=== PATIENT | male | born 1960 | race Caucasian/White ===

== ENCOUNTER 2017-06-17 17:34 | Emergency (ER) | payer OTHER ==
[2017-06-17 17:48] VITALS: BP 142/82; PULSE 78; TEMP 98.5; BMI 24.9
--- NOTE | 2017-06-17 18:21 | PDOC ---
History of Present Illness - General History Source: Patient Exam Limitations: No Limitations - History of Present Illness Initial Comments: 06/17/17 18:43 The patient is a 57 year old male with no significant past medical history, who presents to the ED with left hand redness/pain/ and swelling that began last night. Patient states he felt a bug bite him and redness and swelling began one hour after. He comes in to the ED because redness is now streaking up to the elbow. Patient denies fever, chills, nausea, vomiting, diarrhea. Denies prior history of skin infections. Denies prior injury to the left hand. PCP: Dr. Paul <Johnny Leon - Last Filed: 06/17/17 18:43> <Fabienne Craven - Last Filed: 06/19/17 11:45> - General Chief Complaint: Redness To Affected Area Stated Complaint: LEFT HAND REDNESS, SWELLING Time Seen by Provider: 06/17/17 18:21 Past History <Johnny Leon - Last Filed: 06/17/17 18:43> - Psycho/Social/Smoking Cessation Hx Suicidal Ideation: No Smoking History: Never smoked Have you smoked in the past 12 months: No Information on smoking cessation initiated: No Hx Alcohol Use: (occasional) Drug/Substance Use Hx: No <Fabienne Craven - Last Filed: 06/19/17 11:45> - Past Medical History Allergies/Adverse Reactions: Allergies Allergy/AdvReac Type Severity Reaction Status Date / Time No Known Allergies Allergy Verified 06/17/17 17:40 Home Medications: Ambulatory Orders Clindamycin HCl [Cleocin HCl] 300 mg PO QID #28 capsule 06/17/17 Review of Systems - Review of Systems Able to Perform ROS?: Yes Comments:: 06/17/17 18:43 GENERAL/CONSTITUTIONAL: No fever or chills. No weakness. HEAD, EYES, EARS, NOSE AND THROAT: No change in vision. No ear pain or discharge. No sore throat. CARDIOVASCULAR: No chest pain or shortness of breath. RESPIRATORY: No cough, wheezing, or hemoptysis. GASTROINTESTINAL: No nausea, vomiting, diarrhea or constipation. GENITOURINARY: No dysuria, frequency, or change in urination. MUSCULOSKELETAL: Pain to the left hand extending to the elbow. SKIN: Redness and swelling to the left hand extending to the elbow. NEUROLOGIC: No headache, vertigo, loss of consciousness, or change in strength/ sensation. ENDOCRINE: No increased thirst. No abnormal weight change. HEMATOLOGIC/LYMPHATIC: No anemia, easy bleeding, or history of blood clots. ALLERGIC/IMMUNOLOGIC: No hives or skin allergy. <Johnny Leon - Last Filed: 06/17/17 18:43> *Physical Exam - Vital Signs Last Vital Signs Temp Pulse Resp BP Pulse Ox 98.5 F 78 18 142/82 100 06/17/17 17:34 06/17/17 17:34 06/17/17 17:34 06/17/17 17:34 06/17/17 17:34 - Physical Exam Comments: 06/17/17 18:45 GENERAL: Awake, alert, and fully oriented, in no acute distress HEAD: No signs of trauma EYES: PERRLA, EOMI, sclera anicteric, conjunctiva clear ENT: Auricles normal inspection, hearing grossly normal, nares patent, oropharynx clear without exudates. Moist mucosa NECK: Normal ROM, supple, no lymphadenopathy, JVD, or masses LUNGS: Breath sounds equal, clear to auscultation bilaterally. No wheezes, and no crackles HEART: Regular rate and rhythm, normal S1 and S2, no murmurs, rubs or gallops ABDOMEN: Soft, nontender, normoactive bowel sounds. No guarding, no rebound. No masses EXTREMITIES: Normal range of motion, no edema. No clubbing or cyanosis. No cords, erythema, or tenderness NEUROLOGICAL: Cranial nerves II through XII grossly intact. Normal speech, normal gait SKIN: Erythema and warmth extending to the elbow. Erythema to the dorsum of the left hand that extends past the MCP joints. He has full ROM at the MCP, PIP, and DIP joints. No limited ROM at the wrist or elbow. <Johnny Leon - Last Filed: 06/17/17 18:43> - Vital Signs Last Vital Signs Temp Pulse Resp BP Pulse Ox 98.5 F 78 18 142/82 100 06/17/17 17:34 06/17/17 17:34 06/17/17 17:34 06/17/17 17:34 06/17/17 17:34 <Fabienne Craven - Last Filed: 06/19/17 11:45> ED Treatment Course - LABORATORY CBC & Chemistry Diagram: 06/17/17 18:45 06/17/17 18:45 <Fabienne Craven - Last Filed: 06/19/17 11:45> Medical Decision Making - Medical Decision Making 06/19/17 11:40 Pt presents to the ED complaining of hand redness and swelling that has been progressively worsening since yesterday. Pain and swelling are now extending past the elbow. Will start IV antibiotics, and admit for observation. <Fabienne Craven - Last Filed: 06/19/17 11:45> *DC/Admit/Observation/Transfer - Attestations Scribe Attestion: 06/17/17 18:45 Documentation prepared by Johnny Leon, acting as medical billing and coding specialist for Fabienne Craven MD, . <Johnny Leon - Last Filed: 06/17/17 18:43> <Fabienne Craven - Last Filed: 06/19/17 11:45> Diagnosis at time of Disposition: Cellulitis of left forearm - Discharge Dispostion Disposition: HOME Condition at time of disposition: Stable - Prescriptions Prescriptions: Clindamycin HCl [Cleocin HCl] 300 mg PO QID #28 capsule - Patient Instructions Printed Discharge Instructions: Cellulitis Additional Instructions: Elevate left arm as much as possible Clindamycin 300 mg 4 times a day for one week Return to ER immediately if you have worsening pain/redness/swelling or develop fever Follow-up with Dr. Paul within the next week
[2017-06-17] MEDS ORDERED: CLINDAMYCIN 600MG PREMIX IVPB 50 ML IVPB ONE (18:38)
[2017-06-17] MEDS ORDERED: CLINDAMYCIN PHOSPHATE 600 MG/4 ML VIAL ONE (18:41)
[2017-06-17 19:14] LABS: BASOPHIL 0.1 % (0-2.0); EOSINOPHIL 1.1 % (0-4.5); MCH 29.4 pg (25.7-33.7); MCHC 34.2 g/dl (32.0-35.9); MEAN CELL VOLUME 85.9 fl (80-96); MEAN PLT VOLUME 9.9 fl (7.5-11.1); NEUTROPHILS 56.7 % (42.8-82.8); PLATELET COUNT 161 K/MM3 (134-434); RDW 11.5 % (11.9-15.9); WHITE BLOOD COUNT 8.4 K/mm3 (4.0-10.8)
[2017-06-17 19:22] LABS: ALBUMIN 4.4 g/dl (3.5-5.0); ALK PHOS 76 U/L (32-92); ANION GAP 6 (8-16); BILIRUBIN,TOTAL 1.8 mg/dl (0.2-1.0); CALCIUM 9.5 mg/dl (8.4-10.2); CO2 30 mmol/L (22-28); CREATININE 0.8 mg/dl (0.6-1.3); GLUCOSE,RANDOM 99 mg/dl (74-106); SGOT/AST 16 U/L (10-42); SGPT/ALT 24 U/L (10-40)
[2017-06-17 20:00] LABS: ERYTHROCYTE SEDIMENTATION RATE 1 mm/hr (0-20)
[2017-06-17 21:15] LABS: C-REACTIVE PROTEIN < 0.3 MG/DL (0.00-0.3)
--- NOTE | 2017-06-17 21:44 | PDOC ---
*Physical Exam - Vital Signs Last Vital Signs Temp Pulse Resp BP Pulse Ox 98.5 F 78 18 142/82 100 06/17/17 17:34 06/17/17 17:34 06/17/17 17:34 06/17/17 17:34 06/17/17 17:34 ED Treatment Course - LABORATORY CBC & Chemistry Diagram: 06/17/17 18:45 06/17/17 18:45 - ADDITIONAL ORDERS Additional order review: Laboratory Results 06/17/17 18:45 Sodium 138 Potassium 3.8 Chloride 102 Carbon Dioxide 30 H Anion Gap 6 L BUN 15 Creatinine 0.8 Creat Clearance w eGFR > 60 Random Glucose 99 Calcium 9.5 Total Bilirubin 1.8 H AST 16 D ALT 24 Alkaline Phosphatase 76 D C-Reactive Protein < 0.3 Total Protein 7.0 Albumin 4.4 06/17/17 18:45 RBC 5.55 MCV 85.9 MCHC 34.2 RDW 11.5 L MPV 9.9 Neutrophils % 56.7 D Lymphocytes % 33.4 D Monocytes % 8.7 Eosinophils % 1.1 Basophils % 0.1 - Medications Given in the ED: ED Medications Discontinued Medications Generic Name Dose Route Start Last Admin Trade Name Freq PRN Reason Stop Dose Admin Clindamycin Phosphate 50 mls @ 100 mls/hr 06/17/17 18:38 06/17/17 19:00 Cleocin 600 Mg Premix Ivpb - IVPB 06/17/17 19:07 100 mls/hr ONCE ONE Administration Progress Note - Progress Note Progress Note: Care of this patient received from . Patient received 600 mg of clindamycin IV. Laboratory evaluation shows no elevation of white blood cell count/lactic acid/ ESR/CRP. Case discussed with Dr. Haider from [facility] hospitalist service. Since laboratory evaluation reveals no suggestion of systemic infectious process and the patient is reliable with a local PMD (Dr. Paul), he will receive trial of oral antibiotics with follow-up with Dr. Paul. If he has any progression of his erythema/edema/pain forearm or if he develops fever, he should return to the emergency room. *DC/Admit/Observation/Transfer Diagnosis at time of Disposition: Cellulitis of left forearm - Discharge Dispostion Disposition: HOME Condition at time of disposition: Stable - Prescriptions Prescriptions: Clindamycin HCl [Cleocin HCl] 300 mg PO QID #28 capsule - Patient Instructions Printed Discharge Instructions: Cellulitis Additional Instructions: Elevate left arm as much as possible Clindamycin 300 mg 4 times a day for one week Return to ER immediately if you have worsening pain/redness/swelling or develop fever Follow-up with Dr. Paul within the next week
== END 2017-06-17 21:52 | disposition home or self-care (01) ==
LOC: FER 17:34
DX: L03.114 Cellulitis of left upper limb (principal)
CPT/HCPCS: 36415; 80053; 85025; 85651; 86140; 99282-25

== ENCOUNTER 2018-04-12 03:47 | Emergency (ER) | payer OTHER ==
[2018-04-12 03:53] VITALS: BP 166/99; PULSE 75; TEMP 98.2; BMI 25.1
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
[2018-04-12 05:24] LABS: BASO % 0.2 % (0-2.0); EOS % 1.9 % (0-4.5); HEMATOCRIT 42.8 % (35.4-49); HEMOGLOBIN 14.4 GM/dL (11.7-16.9); LYMPH % 47.3 % (8-40); MCHC 33.6 g/dl (32.0-35.9); MEAN CELL VOLUME 86.3 fl (80-96); MEAN PLT VOLUME 10.5 fl (7.5-11.1); MONO % 8.3 % (3.8-10.2); NEUT % 42.3 % (42.8-82.8); PLATELET COUNT 144 K/MM3 (134-434); RBC 4.97 M/mm3 (4.00-5.60); RDW 12.9 % (11.9-15.9); WHITE BLOOD COUNT 4.9 K/mm3 (4.0-10.0)
[2018-04-12 05:25] LABS: INR 0.96 (0.82-1.09); PROTHROMBIN TIME (PATIENT) 10.8 SEC (9.7-13.0)
[2018-04-12 06:01] LABS: BLOOD UREA NITROGEN 21 mg/dL (7-18); CREATININE 0.9 mg/dL (0.7-1.3); GLUCOSE,RANDOM 121 mg/dL (74-106); POTASSIUM 4.4 mmol/L (3.5-5.1); SODIUM 140 mmol/L (136-145)
[2018-04-12 06:02] LABS: ALBUMIN 3.8 g/dl (3.4-5.0); ALK PHOS 72 U/L (45-117); ANION GAP 7 (8-16); BILIRUBIN,TOTAL 1.6 mg/dL (0.2-1.0); CALCIUM 8.8 mg/dL (8.5-10.1); CHLORIDE 107 mmol/L (98-107); CO2 26 mmol/L (21-32); SGOT/AST 17 U/L (15-37); SGPT/ALT 31 U/L (12-78); TOT PROT 6.7 g/dl (6.4-8.2)
--- NOTE | 2018-04-12 09:45 | EKG ---
Test Reason : Blood Pressure : / mmHG Vent. Rate : 089 BPM Atrial Rate : 089 BPM P-R Int : 158 ms QRS Dur : 084 ms QT Int : 354 ms P-R-T Axes : 072 066 051 degrees QTc Int : 430 ms NORMAL SINUS RHYTHM POSSIBLE LEFT ATRIAL ENLARGEMENT NO PREVIOUS ECGS AVAILABLE Confirmed by PRISCILLA WILDE MD ([id number]) on 04/12/2018 9:45:14 AM Referred By: LUDWIG MUSTAFA Confirmed By:PRISCILLA WILDE MD
== END 2018-04-12 06:26 | disposition home or self-care (01) ==
LOC: FER 03:47
DX: R42 Dizziness and giddiness (principal); G89.29 Other chronic pain
CPT/HCPCS: 36415; 70450-TC; 80053; 82550; 84484; 85025; 85610; 93005; 99282-25

== ENCOUNTER 2018-05-27 10:22 | Day surgery (SDC) | payer OTHER ==
[2018-05-24 14:08] VITALS: BMI 24.5
[2018-05-27] MEDS ORDERED: PROPOFOL 20 ML ONE (12:29)
[2018-05-27 12:58] VITALS: PULSE 74; TEMP 98
[2018-05-27 12:59] VITALS: BP 110/65
--- NOTE | 2018-05-29 13:31 | PATH ---
Surgical Pathology Report Patient Name: VAUGHN TRIPP [facility]. Rec. #: [id number] /Age/Gender: 1960 (Age: 58) / M Account: [id number] [facility] Taken: 05/27/2018 Received: 05/27/2018 Reported: 05/28/2018 Physicians: Tyrell Quintana M.D. Specimen(s) Received A: BX DUODENUM B: BX ANTRUM Clinical History GERD, rule out celiac disease Final Diagnosis A. DUODENUM, BIOPSY: DUODENAL MUCOSA WITH NO DIAGNOSTIC ABNORMALITIES. NO HISTOLOGIC EVIDENCE OF CELIAC DISEASE. B. ANTRUM, BIOPSY: GASTRIC MUCOSA WITH MILD CHRONIC INFLAMMATION. IMMUNOSTAIN IS NEGATIVE FOR H. PYLORI ORGANISMS. Electronically Signed Jennifer Nelson M.D. Gross Description A. Received in formalin, labeled "duodenal" are 2 carter, irregular portions of soft tissue measuring 0.4 cm. in greatest dimension. The specimens are submitted in toto in one cassette. B. Received in formalin, labeled "antrum" are 2 carter, irregular portions of soft tissue measuring 0.4 cm. in greatest dimension. The specimens are submitted in toto in one cassette. __ KWS/05/27/2018 sulki/05/27/2018
== END 2018-05-27 13:05 | disposition home or self-care (01) ==
LOC: FASU-ENDO 10:22
PROVIDERS: ATTEND Internal Medicine Gastroenterology
PROC: 0D748DZ Dilation of Esophagogastric Junction with Intraluminal Device, Via Natural or Artificial Opening Endoscopic (ICD-10-PCS; 2018-05-27)
PROC: 0DB98ZX Excision of Duodenum, Via Natural or Artificial Opening Endoscopic, Diagnostic (ICD-10-PCS; principal; 2018-05-27 12:01)
PROC: 0DB68ZX Excision of Stomach, Via Natural or Artificial Opening Endoscopic, Diagnostic (ICD-10-PCS; 2018-05-27 12:01)
DX: K29.50 Unspecified chronic gastritis without bleeding (principal); R13.10 Dysphagia, unspecified
CPT/HCPCS: 88305-TC; 88342-TC

== ENCOUNTER 2022-03-25 11:08 | Emergency (ER) | payer OTHER ==
[2022-03-25 11:42] VITALS: BP 139/99; PULSE 96; TEMP 98.3; BMI 24.7
[2022-03-25] MEDS ORDERED: BEBTELOVIMAB (EUA) 175 MG/2 ML VIAL IVPUSH ONE (11:45)
== END 2022-03-25 13:45 | disposition home or self-care (01) ==
LOC: JER 11:08
PROC: 3E033NZ Introduction of Analgesics, Hypnotics, Sedatives into Peripheral Vein, Percutaneous Approach (ICD-10-PCS; principal; 2022-03-25)
DX: U07.1 COVID-19 (principal)
CPT/HCPCS: 99283-25

== ENCOUNTER 2022-09-29 19:05 | Emergency (ER) | payer OTHER ==
[2022-09-29 19:20] VITALS: BP 156/96; PULSE 95; RESP 18; TEMP 98.6; BMI 25.9
[2022-09-29] MEDS ORDERED: KETOROLAC TROMETHAMINE 60 MG/2 ML VIAL IM ONE (19:26)
[2022-09-29] MEDS ORDERED: KETOROLAC TROMETHAMINE 60 MG/2 ML VIAL ONE (19:28)
== END 2022-09-29 21:19 | disposition home or self-care (01) ==
LOC: FER 19:05
PROC: 3E0233Z Introduction of Anti-inflammatory into Muscle, Percutaneous Approach (ICD-10-PCS; principal; 2022-09-29)
DX: M79.662 Pain in left lower leg (principal)
CPT/HCPCS: 93971-TC; 99284-25

== ENCOUNTER 2023-12-05 06:30 | Day surgery (SDC) | payer OTHER ==
[2023-11-27 14:52] VITALS: BMI 25.5
[2023-12-05] MEDS ORDERED: LIDOCAINE HCL 2% (20ML MULTI-DOSE VIAL) ONE (07:25)
[2023-12-05] MEDS ORDERED: MIDAZOLAM HCL 2 MG/2 ML SINGLE DOSE VIAL ONE (07:53)
[2023-12-05] MEDS ORDERED: PROPOFOL 20 ML ONE ×2 (07:53→08:24)
[2023-12-05] MEDS ORDERED: ONDANSETRON 4 MG/2 ML VIAL ONE (08:23)
[2023-12-05] MEDS ORDERED: DEXAMETHASONE SOD PHOSPHATE 4 MG/1 ML VIAL ONE (08:23)
[2023-12-05] MEDS ORDERED: BUPIVACAINE HCL/PF 0.25% (2.5MG/ML) 10 ML VIAL ONE (08:28)
[2023-12-05] MEDS: BUPIVACAINE HCL/PF 0.25% (2.5MG/ML) 10 ML VIAL IJ ONE (08:30)
[2023-12-05] MEDS ORDERED: ONDANSETRON 4 MG/2 ML VIAL IVPUSH PRN (08:44)
[2023-12-05] MEDS ORDERED: LACTATED RINGERS SOLUTION 1,000 ML IV SCH (08:45)
[2023-12-05 09:49] VITALS: PULSE 80; RESP 18; TEMP 97.7
[2023-12-05 09:50] VITALS: BP 128/80
== END 2023-12-05 09:51 | disposition home or self-care (01) ==
LOC: FASU 06:30
PROVIDERS: ATTEND Orthopaedic Surgery Hand Surgery
PROC: 0HBGXZZ Excision of Left Hand Skin, External Approach (ICD-10-PCS; principal; 2023-12-05 08:27)
DX: D23.62 Other benign neoplasm of skin of left upper limb, including shoulder (principal)
CPT/HCPCS: 88305-TC; 94760